=== PATIENT | female | born 1995 | race Asian ===

== ENCOUNTER 2018-06-27 03:22 | Emergency (ER) | payer BC ==
[~2018-06-27] VITALS: Ht 162.6 cm; Wt 56.7 kg
[2018-06-27 03:36] VITALS: BP 103/86
--- NOTE | 2018-06-27 03:39 | Emergency Room Report ---
History of Present Illness General Chief Complaint: Alcohol Intoxication Source: EMS Present Illness HPI Is a young female brought in by EMS for alcohol intoxication and overdose. She was seen by police sitting slumping over with a male friend. When they came by she was never responsive and general was very drunk. They called 911. He does not know her name. Unable to get any history. Per EMS she has pinpoint pupil with hypotension and bradycardia. They gave her 2 mg Narcan without much effect. Unable to get any history from the patient because of her severe intoxication. No trauma. Allergies: Coded Allergies: No Known Allergies (Unverified , 06/27/18) Patient History Past Medical History: see triage record, old chart reviewed Past Surgical History: unable to obtain Pertinent Family History: unable to obtain Social History: Reports: alcohol use Last Menstrual Period: unk Immunizations: other Reviewed Nursing Documentation: PMH: Agreed; PSxH: Agreed Review of Systems All Other Systems: limited - Secondary to intoxication Physical Exam Vital Signs Date Time Temp Pulse Resp B/P (MAP) Pulse Ox O2 Delivery O2 Flow Rate FiO2 06/27/18 03:26 74 16 109/93 100 Room Air vitals normal Sp02 EP Interpretation: reviewed, normal General Appearance: well appearing, no apparent distress, Stupor - From intoxication Head: normocephalic, atraumatic Eyes: bilateral eye PERRL, bilateral eye EOMI ENT: hearing grossly normal, normal pharynx Neck: full range of motion, supple, no meningismus Respiratory: chest non-tender, lungs clear, normal breath sounds Cardiovascular #1: regular rate, rhythm, no murmur Gastrointestinal: normal bowel sounds, non tender, no mass, no organomegaly, no bruit, non-distended Musculoskeletal: back normal, normal range of motion Psychiatric: mood/affect normal Skin: warm/dry Medical Decision Making Diagnostic Impression: Primary Impression: Acute alcoholic intoxication Qualified Codes: F10.929 - Alcohol use, unspecified with intoxication, unspecified ER Course Patient presents with alcohol intoxication. There is no other drugs on board. She slept in the night. Now she is awake and is hysterical because she lost her purse, phone and even her social security number. She gave an address to her house. She also gave phone number to her parents but [facility]. Lab Results Impression labs with elevated alcohol Last Vital Signs Date Time Temp Pulse Resp B/P (MAP) Pulse Ox O2 Delivery O2 Flow Rate FiO2 06/27/18 03:26 74 16 109/93 100 Room Air Status: improved Disposition: HOME, SELF-CARE Condition: Stable Patient Instructions: Alcohol Intoxication, [id number] Additional Instructions: Stop drinking to excess. Follow-up your doctor in 7 days. Return if symptom worsen. JONELLE ALBERT M.D. Jun 27, 2018 03:39
[2018-06-27 03:49] LABS: APPEARANCE,URINE CLEAR; BILIRUBIN, URINE NEGATIVE (NEGATIVE); COLOR,URINE PALE YELLOW; GLUCOSE, URINE (UA) NEGATIVE (NEGATIVE); KETONES,URINE NEGATIVE (NEGATIVE); LEUKOCYTE ESTERASE ,URINE NEGATIVE (NEGATIVE); NITRITE,URINE NEGATIVE (NEGATIVE); PH,URINE 6.5 (4.5-8.0); PROTEIN,URINE NEGATIVE (NEGATIVE); UROBILINOGEN,URINE NORMAL MG/DL (0.0-1.0)
[2018-06-27 04:26] VITALS: BP 91/48
[2018-06-27 04:42] VITALS: BP 94/58
[2018-06-27 07:28] VITALS: BP 105/68
[2018-06-27 07:34] VITALS: BP 105/68
== END 2018-06-27 07:35 | disposition home or self-care (01) ==
LOC: EDBD 03:22 → EMR 03:39 → EDBD 03:39 → EMR 07:35
DX: T51.0X1A Toxic effect of ethanol, accidental (unintentional), initial encounter (principal); F10.929 Alcohol use, unspecified with intoxication, unspecified; I95.89 Other hypotension; R00.1 Bradycardia, unspecified; Y92.89 Other specified places as the place of occurrence of the external cause
CPT/HCPCS: 36415; 80307; 81003; 81025; 96360; 96361; 99284; G0480; 80329